=== PATIENT | female | born 1940 | race Caucasian/White ===

== ENCOUNTER 2017-01-30 22:22 | Observation (INO) | payer MEDICARE, OTHER ==
[~2017-01-30] VITALS: Ht 157.5 cm; Wt 88.0 kg
[~2017-01-30 22:22] MED LIST: ARNIGEL TOP; ASPI81TA82 PO; ATEN-100 PO; GLUCTAB PO; HYDR-3533 PO; LANTUS2P SC; LEVEMIR SQ; LISI-360 PO; NOVOLOGP2 SQ; ROSU10 PO; SYNT88TA PO; VICT18IN INJ; VITA200017 PO; Z.0.WHEELSTD
[2017-01-30] MEDS ORDERED: ASPI-110 PO (22:36)
[2017-01-30] MEDS ORDERED: METF-382 PO (22:36)
[2017-01-30] MEDS ORDERED: CHOL20005 PO (22:36)
[2017-01-30] MEDS ORDERED: ATEN25TA PO (22:36)
[2017-01-30] MEDS ORDERED: NOVOLOGP2 SQ (22:36)
[2017-01-30] MEDS ORDERED: SYNT88TA PO (22:36)
[2017-01-30] MEDS ORDERED: [UNRECOGNIZED DRUG - OTHER] (22:36)
[2017-01-30] MEDS ORDERED: ROSU5 PO (22:36)
[2017-01-30] MEDS ORDERED: LISI10TA3 PO (22:36)
[2017-01-30 22:37] VITALS: BP 117/68; PULSE 66; RESP 18; TEMP 98.7; O2SAT 96
[2017-01-30] MEDS ORDERED: SODIUM CHLOR 0.9% 1000 ML INJ 1,000 ML IV ONE (22:38)
--- NOTE | 2017-01-30 22:47 | PD ---
HPI Chief Complaint: Seizure Time Seen by Provider: 22:40 Travel History International Travel<30 days: No Contact w/Intl Traveler<30days: No Traveled to known affect area: No History of Present Illness HPI 76-year-old female presents the emergency department via EMS status post unresponsive episode in her home. Patient is a type II diabetic on insulin , who states she was resting watching television when she fell asleep and woke up with a cramp in her right foot and leg. States she got up several times to walk it off, and then fell back to sleep on the couch. Patient states her son reports an episode of unresponsiveness. Patient when she "came to" was diaphoretic and had a small amount of urinary incontinence. Patient has no history of seizures in the past. Patient got up and changed her pants and underwear prior to the arrival of EMS. Blood sugar checked by EMS was 120. Patient states no pain, headache, nausea, vomiting, abdominal pain, or other acute symptoms currently. Patient does have a history of dehydration in the distant past. She is allergic to sulfa. PFSH Past Medical History Hx Anticoagulant Therapy: Yes Arthritis: No Asthma: No Autoimmune Disease: No Anxiety: No Depression: No Heart Rhythm Problems: No Cancer: No Cardiovascular Problems: Yes High Cholesterol: Yes ( PT TAKES CRESTOR) Chemotherapy: No Chest Pain: No Congestive Heart Failure: No COPD: No Cerebrovascular Accident: No Diabetes: Yes Endocrine: Yes GERD: No Genitourinary: No Hiatal Hernia: No Hypertension: Yes Immune Disorder: No Kidney Stones: No Musculoskeletal: No Neurologic: No Psychiatric: No Reproductive: No Respiratory: No Migraines: No Radiation Therapy: No Renal Failure: No Seizures: No Sickle Cell Disease: No Sleep Apnea: No Thyroid Disease: Yes Ulcer: No ?: Not Past Surgical History Abdominal Surgery: No AICD: No Arteriovenous Shunt: No Cardiac Surgery: No Ear Surgery: No Endocrine Surgery: No Eye Surgery: No Genitourinary Surgery: No Gynecologic Surgery: Yes (HYSTERECTOMY) Hysterectomy: Yes Insulin Pump: No Joint Replacement: No Oral Surgery: No Pacemaker: No Thoracic Surgery: No Social History Alcohol Use: No Tobacco Use: No Substance Use: No Allergies-Medications (Allergen,Severity, Reaction): Coded Allergies: Sulfa (Unverified Allergy, Unknown, 01/30/17) Reported Meds & Prescriptions Reported Meds & Active Scripts Active Reported Synthroid (Levothyroxine Sodium) 88 Mcg Tab 88 Mcg PO DAILY Crestor (Rosuvastatin Calcium) 5 Mg Tab 5 Mg PO DAILY Metformin ER (Metformin HCl) 1,000 Mg Momo 1,000 Mg PO BID With evening meal Lisinopril 10 Mg Tab 10 Mg PO DAILY Novolog Inj (Insulin Aspart) 1,000 Unit/10 Ml Vial 0 SQ DIRECTED Sliding Scale as directed. D3 Super Strength (Cholecalciferol) 2,000 Unit Cap 2,000 Units PO DAILY Atenolol 25 Mg Tab 25 Mg PO DAILY Aspirin 81 (Aspirin) 81 Mg Tabdr 81 Mg PO DAILY [trejenta] Review of Systems Except as stated in HPI: all other systems reviewed are Neg General / Constitutional: No: Fever Eyes: No: Visual changes HENT: No: Headaches Cardiovascular: No: Chest Pain or Discomfort Respiratory: No: Shortness of Breath Gastrointestinal: No: Abdominal Pain Genitourinary: No: Dysuria Musculoskeletal: No: Pain Skin: No Rash Neurologic: No: Weakness Psychiatric: No: Depression Endocrine: No: Polydipsia Hematologic/Lymphatic: No: Easy Bruising Physical Exam Narrative GENERAL: Patient appears in no acute distress. She is alert and oriented 3. She does not appear postictal. SKIN: Warm . Normal color. Normal turgor. No diaphoresis currently. HEAD: Atraumatic. Normocephalic. EYES: Pupils equal and round. No scleral icterus. No injection or drainage. ENT: No nasal bleeding or discharge. Mucous membranes pink and moist. Pharynx is normal. Airway is patent. NECK: Trachea midline. Supple and nontender. CARDIOVASCULAR: Regular rate and rhythm. No murmurs gallops or rubs. RESPIRATORY: No accessory muscle use. Clear to auscultation. Breath sounds equal bilaterally. GASTROINTESTINAL: Abdomen soft, non-tender, nondistended. Hepatic and splenic margins not palpable. MUSCULOSKELETAL: Extremities without clubbing, cyanosis, or edema. No obvious deformities. NEUROLOGICAL: Awake and alert. No obvious cranial nerve deficits. Motor grossly within normal limits. Five out of 5 muscle strength in the arms and legs. Normal speech. PSYCHIATRIC: Appropriate mood and affect; insight and judgment normal. Data Data Last Documented VS Vital Signs Date Time Temp Pulse Resp B/P Pulse Ox O2 Delivery O2 Flow Rate FiO2 01/30/17 22:37 98.7 66 18 117/68 96 Orders Electrocardiogram (01/30/17 22:38) Complete Blood Count With Diff (01/30/17 22:38) Comprehensive Metabolic Panel (01/30/17 22:38) Magnesium (Mg) (01/30/17 22:38) Ckmb (Isoenzyme) Profile (01/30/17 22:38) Troponin I (01/30/17 22:38) Act Partial Throm Time (Ptt) (01/30/17 22:38) Prothrombin Time / Inr (Pt) (01/30/17 22:38) Urinalysis - C+S If Indicated (01/30/17 22:38) Chest, Single Ap (01/30/17 22:38) Ecg Monitoring (01/30/17 22:38) Iv Access Insert/Monitor (01/30/17:38) Oximetry (01/30/17 22:38) Sodium Chloride 0.9% Flush (Ns Flush) (01/30/17 22:45) Sodium Chlor 0.9% 1000 Ml Inj (Ns 1000 M (01/30/17 22:38) Orthostatic Vital Signs (01/30/17 22:38) MDM Medical Decision Making Medical Screen Exam Complete: Yes Emergency Medical Condition: Yes Differential Diagnosis Syncope. Dehydration. Electrolyte imbalance. Possible seizure disorder. Narrative Course Patient is medically stable at time of exam. Labs ordered including CBC, CMP, urinalysis, cardiac panel. EKG and chest x-ray are ordered. IV access is obtained patient is given 1000 normal saline bolus IV. CT of the head is ordered. After discussion with Dr. Santos. 2300 hrs. patient care is assumed by . Final disposition will be made by him. Condition: Stable Titus Lynne Jan 30, 2017 22:47
[2017-01-30 23:01] VITALS: RESP 18; O2SAT 96
[2017-01-30] MEDS: SODIUM CHLORIDE 0.9% FLUSH 10 ML FLUSH IVF PRN (23:01)
[2017-01-30 23:09] VITALS: BP_SYST 116; BP_SYST 123; BP_SYST 124; BP_DIAS 67; BP_DIAS 70; BP_DIAS 73; RESP 18
--- NOTE | 2017-01-30 23:15 | RADRPT ---
EXAM DATE/TIME: 01/30/2017 22:38 [facility] COMPARISON: CHEST SINGLE AP, February 16, 2015, 2:34. INDICATIONS : Syncope. MEDICAL HISTORY : None. SURGICAL HISTORY : None. ENCOUNTER: Initial ACUITY: 1 day PAIN SCORE: 0/10 LOCATION: Bilateral chest FINDINGS: A single view of the chest demonstrates the lungs to be symmetrically aerated without evidence of mas s, infiltrate or effusion. The cardiomediastinal contours are unremarkable. Osseous structures are intact. CONCLUSION: 1. No acute cardiopulmonary disease. Kirt Ayala MD on January 30, 2017 at 23:13 Board Certified Radiologist. This report was verified electronically.
[2017-01-30 23:28] LABS: AUTOMATED NEUTROPHIL # 5.1 TH/MM3 (1.8-7.7); BASOPHIL # 0.1 TH/MM3 (0-0.2); BASOPHIL % 0.6 % (0.0-2.0); EOSINOPHIL # 0.2 TH/MM3 (0-0.4); EOSINOPHIL % 1.8 % (0.0-4.0); HEMATOCRIT 34.3 % (35.0-46.0); HEMO FLAGS DIFF FINAL; LYMPH % 41.8 % (9.0-44.0); LYMPHOCYTE # 4.4 TH/MM3 (1.0-4.8); MEAN CELL VOLUME 83.1 FL (80.0-100.0); MEAN CORPUSCULAR HGB CONC 32.5 % (32.0-36.0); MONO % 7.4 % (0.0-8.0); NEUT % 48.4 % (16.0-70.0); PLATELET COUNT 285 TH/MM3 (150-450); RED BLOOD COUNT 4.13 MIL/MM3 (4.00-5.30); WHITE BLOOD COUNT 10.5 TH/MM3 (4.0-11.0)
--- NOTE | 2017-01-30 23:42 | RADRPT ---
EXAM DATE/TIME: 01/30/2017 23:23 [facility] COMPARISON: CT BRAIN W/O CONTRAST, February 11, 2015, 22:52. INDICATIONS : Syncope. RADIATION DOSE: 56.35 CTDIvol (mGy) MEDICAL HISTORY : Cardiovascular disease. Hypertension. Diabetes mellitus type 2. SURGICAL HISTORY : Hysterectomy. ENCOUNTER: Initial ACUITY: 1 day PAIN SCALE: 0/10 LOCATION: cranial TECHNIQUE: Multiple contiguous axial images were obtained of the head. Using automated exposure control and adj ustment of the mA and/or kV according to patient size, radiation dose was kept as low as reasonably a chievable to obtain optimal diagnostic quality images. FINDINGS: Noncontrast axial head CT demonstrates the ventricles to be normal in size and configuration with a n ormal sulcal pattern. No acute intracranial hemorrhage, acute cortical infarction, mass or midline sh ift is seen. Posterior fossa structures are unremarkable. Bone windows are unremarkable. There is benign-appearing mucosal disease in the right maxillary sinus . CONCLUSION: 1. No evidence of acute intracranial pathology. No masses are identified. Kirt Ayala MD on January 30, 2017 at 23:40 Board Certified Radiologist. This report was verified electronically.
[2017-01-30 23:55] LABS: ALKALINE PHOSPHATASE 101 U/L (45-117); ALT (GPT) 18 U/L (10-53); ANION GAP 10 MEQ/L (5-15); AST (GOT) 13 U/L (15-37); BICARBONATE 23.1 MEQ/L (21.0-32.0); BLOOD UREA NITROGEN 25 MG/DL (7-18); CHLORIDE 106 MEQ/L (98-107); CREATINE KINASE 144 U/L (26-192); GLOMERULAR FILTRATION RATE 37 ML/MIN (>89); MAGNESIUM 1.9 MG/DL (1.5-2.5); POTASSIUM 3.7 MEQ/L (3.5-5.1); SODIUM (NA) 139 MEQ/L (136-145); TOTAL BILIRUBIN ADULT 0.3 MG/DL (0.2-1.0)
[2017-01-31] VITALS (10 sets, daily range): BP systolic 122–160; BP diastolic 63–76; PULSE 62–80; RESP 18–20; TEMP 97.7–98.8; O2SAT 95–99
[2017-01-31 00:11] LABS: CKMB 1.5 NG/ML (0.5-3.6)
[2017-01-31] MEDS: SODIUM CHLORIDE 0.9% FLUSH 10 ML FLUSH IVF PRN (00:12)
[2017-01-31] MEDS ORDERED: DEXTROSE 50% IN WATER 50 ML VIAL(D50) IV PUSH ONE (00:15)
--- NOTE | 2017-01-31 00:57 | PD ---
Data Data Last Documented VS Vital Signs Date Time Temp Pulse Resp B/P Pulse Ox O2 Delivery O2 Flow Rate FiO2 01/31/17 00:51 72 18 131/72 96 Room Air 01/30/17 22:37 98.7 Orders Electrocardiogram (01/30/17 22:38) Complete Blood Count With Diff (01/30/17 22:38) Comprehensive Metabolic Panel (01/30/17 22:38) Magnesium (Mg) (01/30/17 22:38) Ckmb (Isoenzyme) Profile (01/30/17 22:38) Troponin I (01/30/17 22:38) Act Partial Throm Time (Ptt) (01/30/17 22:38) Prothrombin Time / Inr (Pt) (01/30/17 22:38) Urinalysis - C+S If Indicated (01/30/17 22:38) Chest, Single Ap (01/30/17 22:38) Ecg Monitoring (01/30/17 22:38) Iv Access Insert/Monitor (01/30/17 22:38) Oximetry (01/30/17 22:38) Sodium Chloride 0.9% Flush (Ns Flush) (01/30/17 22:45) Sodium Chlor 0.9% 1000 Ml Inj (Ns 1000 M (01/30/17 22:38) Orthostatic Vital Signs (01/30/17 22:38) Ct Brain W/O Iv Contrast(Rout) (01/30/17 22:47) CKMB (01/30/17 22:50) CKMB% (01/30/17 22:50) Dextrose 50% In Devan (Vial) Inj (D50w (Vi (01/31/17 00:15) Diet As Tolerated (01/31/17 00:16) Labs Laboratory Tests Test 01/30/17 22:50 White Blood Count 10.5 TH/MM3 Red Blood Count 4.13 MIL/MM3 Hemoglobin 11.1 GM/DL Hematocrit 34.3 % Mean Corpuscular Volume 83.1 FL Mean Corpuscular Hemoglobin 27.0 PG Mean Corpuscular Hemoglobin 32.5 % Concent Red Cell Distribution Width 15.0 % Platelet Count 285 TH/MM3 Mean Platelet Volume 8.3 FL Neutrophils (%) (Auto) 48.4 % Lymphocytes (%) (Auto) 41.8 % Monocytes (%) (Auto) 7.4 % Eosinophils (%) (Auto) 1.8 % Basophils (%) (Auto) 0.6 % Neutrophils # (Auto) 5.1 TH/MM3 Lymphocytes # (Auto) 4.4 TH/MM3 Monocytes # (Auto) 0.8 TH/MM3 Eosinophils # (Auto) 0.2 TH/MM3 Basophils # (Auto) 0.1 TH/MM3 CBC Comment DIFF FINAL Differential Comment Sodium Level 139 MEQ/L Potassium Level 3.7 MEQ/L Chloride Level 106 MEQ/L Carbon Dioxide Level 23.1 MEQ/L Anion Gap 10 MEQ/L Blood Urea Nitrogen 25 MG/DL Creatinine 1.38 MG/DL Estimat Glomerular Filtration 37 ML/MIN Rate Random Glucose 48 MG/DL Calcium Level 9.5 MG/DL Magnesium Level 1.9 MG/DL Total Bilirubin 0.3 MG/DL Aspartate Amino Transf 13 U/L (AST/SGOT) Alanine Aminotransferase 18 U/L (ALT/SGPT) Alkaline Phosphatase 101 U/L Total Creatine Kinase 144 U/L Creatine Kinase MB 1.5 NG/ML Troponin I LESS THAN 0.02 NG/ML Total Protein 8.1 GM/DL Albumin 3.8 GM/DL MDM Supervised Visit with JONATHAN: Yes Narrative Course I, Dr. Santos, have reviewed the advance practice practitioner's documentation and am in agreement, met with the patient face to face, made the diagnosis, and the medical decision making was done by me. See her note for further details. Briefly this is a 76 female who has history of diabetes on insulin who is here for evaluation of unresponsiveness and possible seizure. This episode was witnessed by her son. He states that the patient became rigid, high generally shaking, and was groaning. This lasted for about a minute. She had a small amount of urinary incontinence. No history of seizures. EMS noted her blood sugar to be 120. Upon arrival to the emergency department the patient states that she feels well. No physical complaints. No headache. No chest pain or dyspnea. No fevers or recent illness. Physical exam shows an awake and alert/ well-developed well-nourished patient with no focal findings. Vital signs are within normal limits. CBC shows slight anemia with hemoglobin of 11.1, otherwise unremarkable. CMP is remarkable for BUN 25, creatinine 1.3, GFR 37, random glucose 48. Cardiac enzymes are negative. Fingerstick here in the emergency department after chemistry resulted shows a BGL of 42. Patient was given an amp of D50 and given crackers to eat. Repeat sugar is 93. Chest x-ray shows no acute disease. CT head shows no evidence of acute intracranial pathology. Patient's symptoms could be secondary to hypoglycemia, however when EMS arrived to the home the patient's blood glucose was 120. Patient be admitted for overnight observation for syncope versus seizure versus hypoglycemia workup. Case discussed with [facility] hospitalist TIERA Booth. The patient will be admitted to their service under Dr. Grigsby. Diagnosis Primary Impression: Hypoglycemia Additional Impression: Syncope Qualified Code: R55 - Syncope, unspecified syncope type Admitting Information Admitting Physician Requests: Observation Condition: Stable Noe Santos MD Jan 31, 2017 00:57
[2017-01-31] MEDS ORDERED: NALOXONE HCL 0.4 MG/ML AMP IV PRN (01:45)
[2017-01-31] MEDS ORDERED: ACETAMINOPHEN 325 MG TAB PO PRN (01:45)
[2017-01-31] MEDS ORDERED: ONDANSETRON HCL 4 MG/2 ML VIAL IVP PRN (01:45)
[2017-01-31] MEDS ORDERED: SODIUM CHLORIDE 0.9% FLUSH 10 ML FLUSH IV FLUSH PRN (01:45)
[2017-01-31] MEDS: DEXT 5%-NACL 0.9% 1000 ML INJ 1,000 ML IV SCH (02:13)
[2017-01-31 03:43] LABS: APTT (PATIENT) 20.9 SEC (24.3-30.1); PROTHROMBIN TIME - PATIENT 10.7 SEC (9.8-11.6)
[2017-01-31 04:33] LABS: BACTERIA, URINE RARE /hpf; BLOOD, URINE NEG (NEG); COMMENT (UR) CULT NOT INDICATED; CULTURE IF INDICATED CULT NOT INDICATED; GLUCOSE,URINE TRACE mg/dL (NEG); HYALINE CAST, URINE 5 /lpf (RARE); KETONE, URINE NEG (NEG); MUCUS URINE FEW /lpf (OCC); NITRITE,URINE NEG (NEG); SQUAMOUS EPITHELIAL CELL URINE 1 /hpf (0-5); URINE COLOR LIGHT-YELLOW (YELLW/STRAW)
[2017-01-31] MEDS: LEVOTHYROXINE SODIUM 88 MCG TAB PO SCH (05:31)
[2017-01-31] MEDS ORDERED: GLUCAGON 1 MG/ML VIAL IM ONE (08:30)
[2017-01-31] MEDS: SODIUM CHLORIDE 0.9% FLUSH 10 ML FLUSH IV FLUSH SCH ×2 (08:33→20:42)
[2017-01-31] MEDS: ATORVASTATIN 10 MG TAB PO SCH (08:33)
[2017-01-31] MEDS: CHOLECALCIFEROL (VIT D3) 1000 UNIT TAB PO SCH (08:33)
[2017-01-31] MEDS: LISINOPRIL 10 MG TAB PO SCH (08:33)
[2017-01-31] MEDS: ASPIRIN EC 81 MG TABEC PO SCH (08:33)
[2017-01-31] MEDS: ATENOLOL 25 MG TAB PO SCH (08:33)
--- NOTE | 2017-01-31 12:22 | PD.CONS ---
History of Present Illness Service Neurology Consult Requested By [facility] Reason for Consult sz Primary Care Physician Luis Yuen MD History of Present Illness 76-year-old female presents the emergency department via EMS status post unresponsive episode in her home. Patient is a type II diabetic on insulin , who states she was resting watching television when she fell asleep and woke up with a cramp in her right foot and leg. States she got up several times to walk it off, and then fell back to sleep on the couch. Patient states her son reports an episode of unresponsiveness. he noticed her to become stiff and tremor. confusion after. this has occurred to her once before 2 years ago. glucose was elevated at that time. Blood sugar checked by EMS was 120. Patient states no pain, headache, nausea, vomiting, abdominal pain, or other acute symptoms currently. glucose in er 48. ct brain nml. mild azotemia. no hx of concussion/stroke. no family hx of sz. PFSH Past Medical History Hx Anticoagulant Therapy: Yes Arthritis: No Asthma: No Autoimmune Disease: No Anxiety: No Depression: No Heart Rhythm Problems: No Cancer: No Cardiovascular Problems: Yes High Cholesterol: Yes ( PT TAKES CRESTOR) Chemotherapy: No Chest Pain: No Congestive Heart Failure: No COPD: No Cerebrovascular Accident: No Diabetes: Yes Endocrine: Yes GERD: No Genitourinary: No Hiatal Hernia: No Hypertension: Yes Immune Disorder: No Kidney Stones: No Musculoskeletal: No Neurologic: No Psychiatric: No Reproductive: No Respiratory: No Migraines: No Radiation Therapy: No Renal Failure: No Seizures: No Sickle Cell Disease: No Sleep Apnea: No Thyroid Disease: Yes Ulcer: No ?: Not Past Surgical History Abdominal Surgery: No AICD: No Arteriovenous Shunt: No Cardiac Surgery: No Ear Surgery: No Endocrine Surgery: No Eye Surgery: No Genitourinary Surgery: No Gynecologic Surgery: Yes (HYSTERECTOMY) Hysterectomy: Yes Insulin Pump: No Joint Replacement: No Oral Surgery: No Pacemaker: No Thoracic Surgery: No Social History Alcohol Use: No Tobacco Use: No Substance Use: No Allergies-Medications (Allergen,Severity, Reaction): Coded Allergies: Sulfa (Unverified Allergy, Unknown, 01/30/17) Reported Meds & Prescriptions Review of Systems Except as stated in HPI: all other systems reviewed are Neg Review of Systems All other ROS: ROS reviewed as documented in chart Past Family Social History Allergies: Coded Allergies: Sulfa (Unverified Allergy, Unknown, 01/30/17) Active Ordered Medications Current Medications Medications (Trade) Dose Ordered Sig/Hansa Route Start Time Stop Time Status Last Admin (NS Flush) 2 ml UNSCH PRN IVF 01/30/17 22:45 01/31/17 00:12 (NS Flush) 2 ml UNSCH PRN IV FLUSH 01/31/17 01:45 (NS Flush) 2 ml BID IV FLUSH 01/31/17 09:00 (Tylenol) 650 mg Q4H PRN PO 01/31/17 01:45 (Zofran Inj) 4 mg Q6H PRN IVP 01/31/17 01:45 Naloxone HCl 0.4 mg 0.4 mg UNSCH PRN IV 01/31/17 01:45 (D5W-NS 1000 ml Inj) 1,000 ml @ 50 mls/hr Q20H IV 01/31/17 01:42 01/31/17 02:13 (Tenormin) 25 mg DAILY PO 01/31/17 09:00 01/31/17 08:33 (Vitamin D3) 2,000 units DAILY PO 01/31/17 09:00 01/31/17 08:33 (Synthroid) 88 mcg DAILY@06 PO 01/31/17 06:00 01/31/17 05:31 (Prinivil) 10 mg DAILY PO 01/31/17 09:00 01/31/17 08:33 (Ecotrin Ec) 81 mg DAILY PO 01/31/17 09:00 01/31/17 08:33 (Lipitor) 10 mg DAILY PO 01/31/17 09:00 01/31/17 08:33 Exam I&O / VS 01/30/17 01/30/17 01/31/17 15:00 23:00 07:00 Intake Total 240 ml Balance 240 ml Intake Oral 240 ml Vital Signs Date Time Temp Pulse Resp B/P Pulse Ox O2 Delivery O2 Flow Rate FiO2 01/31/17 11:42 70 18 160/72 96 01/31/17 11:20 72 01/31/17 07:58 98.8 80 18 133/68 97 01/31/17 06:49 75 01/31/17 05:50 97.7 77 20 141/76 99 01/31/17 04:00 76 18 122/64 95 Room Air 01/31/17 00:51 72 18 131/72 96 Room Air 01/30/17 23:09 69 18 123/73 80 18 116/67 78 18 124/70 01/30/17 23:01 18 96 Room Air 01/30/17 22:37 98.7 66 18 117/68 96 General: Alert and Oriented, No acute distress Eye: EOMI Respiratory: Non-labored respirations Musculoskeletal: ROM Neurologic: Alert, Oriented, Normal sensory, Normal motor, No focal defects, CN II-XII intact Psychiatric: Cooperative, Appropriate mood & affect, Normal judgement, Non- suicidal Review/Management Diagnosis/Plan: (1) Seizure Plan: 2nd episode unprovoked recs eeg will also obtain neuroimaging for late onset sz tele watch glucose pt declines sz med no driving/climbing heights/operating dangerous machinery (2) Syncope (3) Hypoglycemia Plan: ? does not appear to be cause as glucose was nml immediately after event Problem Qualifiers (1) Syncope: Qualified Code: R55 - Syncope, unspecified syncope type Azar Liu MD Jan 31, 2017 12:22
--- NOTE | 2017-01-31 12:40 | HHI.HP ---
HPI Service [facility] Primary Care Physician Luis Yuen MD Admission Diagnosis hypoglycemia, syncope versus seizure Diagnoses: Travel History International Travel<30 Days: No Contact w/Intl Traveler <30 Da: No Traveled to Known Affected Are: No History of Present Illness This is a 76-year-old female with a history of diabetes. Patient had an episode of becoming rigid, shaking all over and groaning. This was witnessed by her son who was at her bedside while examined earlier today by the undersigned in room F 62 at the emergency department. She had urinary incontinence. She did not bite her tongue. 911 were called. Her fingerstick sugar was 120 according to EMS. She was alert and verbal and oriented on arrival to the emergency department however her blood glucose was 42 and her serum glucose was 48. On further questioning the patient she did not think that the low sugar was the reason for her apparent seizure. She had a similar seizure episode 2 years ago that was apparently associated with some urinary infection but no problem with her blood sugar. The patient was seen in conjunction with neurologist Dr. Liu . Based on the above fact that the patient had what appears to be 2 episodes of seizure , therefore the patient was offered to be started on Keppra which she declined. She drives to work and she was informed that she should not be driving for the next 6 months. The patient gives herself NovoLog insulin based on a sliding scale 3 times a day before meals. She said that her blood sugar was actually elevated yesterday. She recently was started on weekly injections for her diabetes however she does not know the name of those injections. She also has been not taking her B-12 injections recently. She denies complaints otherwise. Review of Systems Other As above, 10 systems are reviewed and otherwise negative Past Family Social History Past Medical History Urinary infection Hypothyroid Hyperlipidemia Hypertension Arthritis Diabetes Past Surgical History Hysterectomy Allergies: Coded Allergies: Sulfa (Unverified Allergy, Unknown, 01/30/17) Family History Reviewed but not contributory Social History Former smoker, quit in 1984, no excessive alcohol, no illicit drug use Physical Exam Vital Signs Vital Signs Date Time Temp Pulse Resp B/P Pulse Ox O2 Delivery O2 Flow Rate FiO2 01/31/17 11:42 70 18 160/72 96 01/31/17 11:20 72 01/31/17 07:58 98.8 80 18 133/68 97 01/31/17 06:49 75 01/31/17 05:50 97.7 77 20 141/76 99 01/31/17 04:00 76 18 122/64 95 Room Air 01/31/17 00:51 72 18 131/72 96 Room Air 01/30/17 23:09 69 18 123/73 80 18 116/67 78 18 124/70 01/30/17 23:01 18 96 Room Air 01/30/17 22:37 98.7 66 18 117/68 96 Physical Exam GENERAL: This is a pleasant, overweight, well-developed patient, in no apparent distress. SKIN: No rashes, ecchymoses or lesions. Cool and dry. HEAD: Atraumatic. Normocephalic. No temporal or scalp tenderness. EYES: Pupils equal round and reactive. Extraocular motions intact. No scleral icterus. No injection or drainage. ENT: Nose without bleeding, purulent drainage or septal hematoma. Throat without erythema, tonsillar hypertrophy or exudate. Uvula midline. Airway patent. NECK: Trachea midline. No JVD or lymphadenopathy. Supple, nontender, no meningeal signs. CARDIOVASCULAR: Regular rate and rhythm without murmurs, gallops, or rubs. RESPIRATORY: Clear to auscultation. Breath sounds equal bilaterally. No wheezes , rales, or rhonchi. GASTROINTESTINAL: Abdomen soft, non-tender, nondistended. No hepato-splenomegaly , or palpable masses. No guarding. MUSCULOSKELETAL: Extremities without clubbing, cyanosis, or edema. No joint tenderness, effusion, or edema noted. No calf tenderness. Negative Homans sign bilaterally. NEUROLOGICAL: Awake and alert. Cranial nerves II through XII intact. Motor and sensory grossly within normal limits. Five out of 5 muscle strength in all muscle groups. Normal speech. Laboratory Laboratory Tests Test 01/30/17 01/31/17 01/31/17 22:50 02:58 03:35 White Blood Count 10.5 Red Blood Count 4.13 Hemoglobin 11.1 Hematocrit 34.3 Mean Corpuscular Volume 83.1 Mean Corpuscular Hemoglobin 27.0 Mean Corpuscular Hemoglobin 32.5 Concent Red Cell Distribution Width 15.0 Platelet Count 285 Mean Platelet Volume 8.3 Neutrophils (%) (Auto) 48.4 Lymphocytes (%) (Auto) 41.8 Monocytes (%) (Auto) 7.4 Eosinophils (%) (Auto) 1.8 Basophils (%) (Auto) 0.6 Neutrophils # (Auto) 5.1 Lymphocytes # (Auto) 4.4 Monocytes # (Auto) 0.8 Eosinophils # (Auto) 0.2 Basophils # (Auto) 0.1 CBC Comment DIFF FINAL Differential Comment Sodium Level 139 Potassium Level 3.7 Chloride Level 106 Carbon Dioxide Level 23.1 Anion Gap 10 Blood Urea Nitrogen 25 Creatinine 1.38 Estimat Glomerular Filtration 37 Rate Random Glucose 48 Calcium Level 9.5 Magnesium Level 1.9 Total Bilirubin 0.3 Aspartate Amino Transf 13 (AST/SGOT) Alanine Aminotransferase 18 (ALT/SGPT) Alkaline Phosphatase 101 Total Creatine Kinase 144 Creatine Kinase MB 1.5 Troponin I LESS THAN 0.02 Total Protein 8.1 Albumin 3.8 Prothrombin Time 10.7 Prothromb Time International 1.0 Ratio Activated Partial 20.9 Thromboplast Time Urine Color LIGHT-YELLOW Urine Turbidity CLEAR Urine pH 5.0 Urine Specific Stanley 1.018 Urine Protein TRACE Urine Glucose (UA) TRACE Urine Ketones NEG Urine Occult Blood NEG Urine Nitrite NEG Urine Bilirubin NEG Urine Urobilinogen LESS THAN 2.0 Urine Leukocyte Esterase SMALL Urine RBC 2 Urine WBC 5 Urine Squamous Epithelial 1 Cells Urine Bacteria RARE Urine Hyaline Casts 5 Urine Mucus FEW Microscopic Urinalysis Comment CULT NOT INDICATED Result Diagram: 01/30/17224901/30/172249 Imaging Last Impressions Head Magnetic Resonance Angiography 01/31/17 0000 Signed Impressions: Service Date/Time: Tuesday, January 31, 2017 14:42 - CONCLUSION: Normal examination for a patient of this age. Randolph Lynn MD Brain MRI 01/31/17 0000 Signed Impressions: Service Date/Time: Tuesday, January 31, 2017 14:42 - CONCLUSION: 1. No acute findings. Mild chronic white matter ischemic changes. No recent infarct. Retention cyst right maxillary sinus. Randolph Lynn MD Head CT 01/30/172246 Signed Impressions: Service Date/Time: Monday, January 30, 2017 23:23 - CONCLUSION: 1. No evidence of acute intracranial pathology. No masses are identified. Kirt Ayala MD Chest X-Ray 01/30/172237 Signed Impressions: Service Date/Time: Monday, January 30, 2017 22:38 - CONCLUSION: 1. No acute cardiopulmonary disease. Kirt Ayala MD Assessment and Plan Assessment and Plan Assessment Recurrent seizures, this is her second episode Hypoglycemia Mild anemia Renal dysfunction, this appears to be new compared with her prior renal indices in 2015 Overweight Hypertriglyceridemia B 12 deficiency Management The patient was placed on observation She has already been seen by neurology MRI of the brain already done and unremarkable Replace B-12 Continue home medications Sliding scale of insulin Needs to lose weight Follow renal function Glucose done as needed for hypoglycemia She was offered to be started on Keppra which she declined She should not be driving for the next 6 months, at least EEG is ordered and report is pending Discussed with patient and her son 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
[2017-01-31] MEDS: INSULIN ASPART SUPPLEMENTAL SCALE SQ SCH ×3 (13:01→20:45)
[2017-01-31] MEDS ORDERED: EXEN1INJ SQ (13:41)
--- NOTE | 2017-01-31 14:12 | EKG ---
Date Performed: 01/30/2017 Time Performed: 23:14:48 PTAGE: 76 years EKG: Sinus arrhythmia Otherwise, within normal limits Since previous tracing, no significant liam nge noted NORMAL ECG PREVIOUS TRACING : 02/11/2015 17.12 DOCTOR: Glenn Nguyen Interpretating Date/Time 01/31/2017 14:11:52
--- NOTE | 2017-01-31 15:15 | RADRPT ---
EXAM DATE/TIME: 01/31/2017 14:42 [facility] COMPARISON: No previous studies available for comparison. INDICATIONS : Epilepsy. MEDICAL HISTORY : Diabetes mellitus type 2. Hypertension. SURGICAL HISTORY : Hysterectomy. ENCOUNTER: Initial ACUITY: 1 day PAIN SCORE: 0/10 LOCATION: cranial Please note a normal MRA of the brain does not entirely exclude the possibility of a small aneurysm, nor the possibility of distal intracranial vessel disease. TECHNIQUE: 3D time of flight MRA was performed. Source images, multiplanar STS MIP, and 3D volume MIP reconstru ctions were reviewed. FINDINGS: There is excellent visualization of the major intracranial arteries out to the second-order branch ve ssels. There is no evidence for aneurysm, vessel truncation or stenosis, and no evidence for vascula r malformation. CONCLUSION: Normal examination for a patient of this age. Randolph Lynn MD on January 31, 2017 at 15:10 Board Certified Radiologist. This report was verified electronically.
--- NOTE | 2017-01-31 15:23 | RADRPT ---
EXAM DATE/TIME: 01/31/2017 14:42 [facility] COMPARISON: No previous studies available for comparison. INDICATIONS : Epilepsy. MEDICAL HISTORY : Diabetes mellitus type 2. Hypertension. SURGICAL HISTORY : Hysterectomy. ENCOUNTER: Initial ACUITY: 1 day PAIN SCORE: 0/10 LOCATION: cranial TECHNIQUE: Multiplanar, multisequence MRI of the brain was performed without contrast. FINDINGS: CEREBRUM: The ventricles are normal for age. No evidence of midline shift, mass lesion, hemorrhage or acute in farction. No extraaxial fluid collections are seen. The pituitary gland and suprasellar cistern are normal in configuration. WHITE MATTER: Mild significant signal abnormalities are seen in the white matter. POSTERIOR FOSSA: The cerebellum and brainstem are intact. The 4th ventricle is midline. The cerebellopontine angle is unremarkable. The cerebellar tonsils are normal in position. DIFFUSION IMAGING: No focal areas of restricted diffusion are seen. No evidence of acute infarction. EXTRACRANIAL: The visualized portions of the orbits and paranasal sinuses are unremarkable except 2.6 cm retention cyst right maxillary sinus. CONCLUSION: 1. No acute findings. Mild chronic white matter ischemic changes. No recent infarct. Retention cyst r ight maxillary sinus. Randolph Lynn MD on January 31, 2017 at 15:15 Board Certified Radiologist. This report was verified electronically.
[2017-01-31 16:49] LABS: ANION GAP 8 MEQ/L (5-15); BICARBONATE 23.8 MEQ/L (21.0-32.0); BLOOD UREA NITROGEN 20 MG/DL (7-18); CHLORIDE 104 MEQ/L (98-107); GLOMERULAR FILTRATION RATE 45 ML/MIN (>89); HDL CHOLESTEROL 45.7 MG/DL (40.0-60.0); LDL CHOLESTEROL 60 MG/DL (0-99); POTASSIUM 4.3 MEQ/L (3.5-5.1); SODIUM (NA) 136 MEQ/L (136-145)
--- NOTE | 2017-01-31 22:00 | RADRPT ---
EXAM DATE/TIME: 01/31/2017 18:50 [facility] COMPARISON: No previous studies available for comparison. INDICATIONS : Syncope. MEDICAL HISTORY : Hypercholesterolemia. Hypertension. Hypothyroidism. Anticoagulant therapy. Arthritis. Diabetes. SURGICAL HISTORY : Hysterectomy. ENCOUNTER: Initial ACUITY: 1 day PAIN SCORE: 0/10 LOCATION: Bilateral neck PEAK SYSTOLIC VELOCITIES (cm/sec): ICA/CCA RATIO: Right: 0.6 Left: 1.1 ICA: Right: 79 Left: 71 CCA: Right: 136 Left: 65 ECA: Right: 79 Left: 81 VERTEBRAL: Right: 74 antegrade Left: 39 antegrade Elevated flow velocities and ICA/CCA ratios have been found to correlate with increased degrees of vessel stenosis, calculated as percentage of diameter relative to a normal segment of distal ICA/CCA FINDINGS: RIGHT CAROTID: No significant stenosis is visualized. The waveforms are within normal limits. LEFT CAROTID: No significant stenosis is visualized. The waveforms are within normal limits. VERTEBRAL ARTERIES: Antegrade flow is seen in both vertebral arteries. MISCELLANEOUS: None. CONCLUSION: Normal examination for a patient of this age. Randolph Lynn MD on January 31, 2017 at 21:58 Board Certified Radiologist. This report was verified electronically.
[2017-02-01] VITALS: BP 124/71; PULSE 61; RESP 20; TEMP 95.4; O2SAT 97
[2017-02-01] MEDS: DEXT 5%-NACL 0.9% 1000 ML INJ 1,000 ML IV SCH (00:15)
[2017-02-01 04:00] VITALS: BP 121/69; PULSE 89; RESP 18; TEMP 98; O2SAT 98
[2017-02-01 04:46] LABS: AUTOMATED NEUTROPHIL # 2.2 TH/MM3 (1.8-7.7); BASOPHIL % 0.5 % (0.0-2.0); EOSINOPHIL # 0.3 TH/MM3 (0-0.4); EOSINOPHIL % 4.6 % (0.0-4.0); HEMATOCRIT 31.6 % (35.0-46.0); HEMO FLAGS DIFF FINAL; LYMPH % 48.5 % (9.0-44.0); LYMPHOCYTE # 2.8 TH/MM3 (1.0-4.8); MEAN CELL VOLUME 82.8 FL (80.0-100.0); MEAN CORPUSCULAR HEMOGLOBIN 27.8 PG (27.0-34.0); MEAN CORPUSCULAR HGB CONC 33.5 % (32.0-36.0); MONO % 8.1 % (0.0-8.0); NEUT % 38.3 % (16.0-70.0); PLATELET COUNT 215 TH/MM3 (150-450); RED BLOOD COUNT 3.81 MIL/MM3 (4.00-5.30); RED CELL DISTRIBUTION WIDTH 15.1 % (11.6-17.2); WHITE BLOOD COUNT 5.7 TH/MM3 (4.0-11.0)
[2017-02-01 05:23] LABS: BICARBONATE 26.4 MEQ/L (21.0-32.0); POTASSIUM 3.9 MEQ/L (3.5-5.1)
[2017-02-01] MEDS: LEVOTHYROXINE SODIUM 88 MCG TAB PO SCH (05:48)
[2017-02-01] MEDS: INSULIN ASPART SUPPLEMENTAL SCALE SQ SCH ×2 (05:48→12:49)
[2017-02-01 07:20] VITALS: BP 117/67; PULSE 66; RESP 20; TEMP 97.9; O2SAT 96
[2017-02-01 08:00] VITALS: PULSE 62
--- NOTE | 2017-02-01 08:10 | HHI.PR ---
Review/Management Diagnosis/Plan: (1) Seizure Plan: 2nd episode unprovoked recs eeg-pending mri brain-no acute lesion carotids-nml tele watch glucose pt declines sz med no driving/climbing heights/operating dangerous machinery (2) Syncope (3) Hypoglycemia Plan: ? does not appear to be cause as glucose was nml immediately after event Subjective Subjective Comments No acute events reported No headache No chest pain No dyspnea Active Medications Current Medications Medications (Trade) Dose Ordered Sig/Hansa Route Start Time Stop Time Status Last Admin (NS Flush) 2 ml UNSCH PRN IVF 01/30/17 22:45 01/31/17 00:12 (NS Flush) 2 ml UNSCH PRN IV FLUSH 01/31/17 01:45 (NS Flush) 2 ml BID IV FLUSH 01/31/17 09:00 01/31/17 20:42 (Tylenol) 650 mg Q4H PRN PO 01/31/17 01:45 (Zofran Inj) 4 mg Q6H PRN IVP 01/31/17 01:45 Naloxone HCl 0.4 mg 0.4 mg UNSCH PRN IV 01/31/17 01:45 (D5W-NS 1000 ml Inj) 1,000 ml @ 50 mls/hr Q20H IV 01/31/17 01:42 02/01/17 00:15 (Tenormin) 25 mg DAILY PO 01/31/17 09:00 01/31/17 08:33 (Vitamin D3) 2,000 units DAILY PO 01/31/17 09:00 01/31/17 08:33 (Synthroid) 88 mcg DAILY@06 PO 01/31/17 06:00 02/01/17 05:48 (Prinivil) 10 mg DAILY PO 01/31/17 09:00 01/31/17 08:33 (Ecotrin Ec) 81 mg DAILY PO 01/31/17 09:00 01/31/17 08:33 (Lipitor) 10 mg DAILY PO 01/31/17 09:00 01/31/17 08:33 (Vitamin B12 Inj) 1,000 mcg DAILY IM 02/01/17 09:00 Allergies Allergies Coded Allergies Sulfa (Unverified Allergy, Unknown, 01/30/17) Review of Systems All other ROS: ROS reviewed as documented in chart Exam I&O / VS Vital Signs Date Time Temp Pulse Resp B/P Pulse Ox O2 Delivery O2 Flow Rate FiO2 02/01/17 07:20 97.9 66 20 117/67 96 02/01/17 04:00 98.0 89 18 121/69 98 02/01/17 00:00 95.4 61 20 124/71 97 01/31/17 20:00 66 01/31/17 19:41 98.1 62 20 130/63 95 01/31/17 16:12 97.8 68 18 127/72 95 01/31/17 11:42 70 18 160/72 96 01/31/17 11:20 72 General: Alert and Oriented, No acute distress Eye: EOMI Respiratory: Non-labored respirations Musculoskeletal: ROM Neurologic: Alert, Oriented, Normal sensory, Normal motor, No focal defects, CN II-XII intact Psychiatric: Cooperative, Appropriate mood & affect, Normal judgement, Non- suicidal Objective Micro and Labs Laboratory Tests Test 01/31/17 02/01/17 15:24 03:30 Erythrocyte Sedimentation Rate 60 Sodium Level 136 142 Potassium Level 4.3 3.9 Chloride Level 104 109 Carbon Dioxide Level 23.8 26.4 Anion Gap 8 7 Blood Urea Nitrogen 20 19 Creatinine 1.16 0.97 Estimat Glomerular Filtration 45 56 Rate Random Glucose 226 45 Calcium Level 8.7 9.1 Triglycerides Level 216 Cholesterol Level 149 LDL Cholesterol 60 HDL Cholesterol 45.7 Cholesterol/HDL Ratio 3.26 Vitamin B12 Level 116 Thyroid Stimulating Hormone 0.820 3rd Gen White Blood Count 5.7 Red Blood Count 3.81 Hemoglobin 10.6 Hematocrit 31.6 Mean Corpuscular Volume 82.8 Mean Corpuscular Hemoglobin 27.8 Mean Corpuscular Hemoglobin 33.5 Concent Red Cell Distribution Width 15.1 Platelet Count 215 Mean Platelet Volume 8.4 Neutrophils (%) (Auto) 38.3 Lymphocytes (%) (Auto) 48.5 Monocytes (%) (Auto) 8.1 Eosinophils (%) (Auto) 4.6 Basophils (%) (Auto) 0.5 Neutrophils # (Auto) 2.2 Lymphocytes # (Auto) 2.8 Monocytes # (Auto) 0.5 Eosinophils # (Auto) 0.3 Basophils # (Auto) 0.0 CBC Comment DIFF FINAL Differential Comment Problem Qualifiers (1) Syncope: Qualified Code: R55 - Syncope, unspecified syncope type Azar Liu MD Feb 01, 2017 08:10
--- NOTE | 2017-02-01 08:19 | HHI.PR ---
Subjective Subjective Remarks blood glucose 45 overnight, asymptomatic, rechecked was 56, now up to 200 dextrose off for a period of time due to IV infiltrated no seizure doesn't want to take seizure meds "I don't want to take more medications, I already take too much" wants to think about it no cp no sob no fever wants to go home Review of Systems Constitutional Constitutional Remarks 12 point ROS completed, negative except as noted above Vitals/Results Vital Signs Vital Signs Date Time Temp Pulse Resp B/P Pulse Ox O2 Delivery O2 Flow Rate FiO2 02/01/17 07:20 97.9 66 20 117/67 96 02/01/17 04:00 98.0 89 18 121/69 98 02/01/17 00:00 95.4 61 20 124/71 97 01/31/17 20:00 66 01/31/17 19:41 98.1 62 20 130/63 95 01/31/17 16:12 97.8 68 18 127/72 95 01/31/17 11:42 70 18 160/72 96 01/31/17 11:20 72 CBC/BMP: 02/01/17 0330 02/01/17 0330 Lab Results Laboratory Tests Test 01/31/17 02/01/17 15:24 03:30 Erythrocyte Sedimentation Rate 60 mm/hr Sodium Level 136 MEQ/L 142 MEQ/L Potassium Level 4.3 MEQ/L 3.9 MEQ/L Chloride Level 104 MEQ/L 109 MEQ/L Carbon Dioxide Level 23.8 MEQ/L 26.4 MEQ/L Anion Gap 8 MEQ/L 7 MEQ/L Blood Urea Nitrogen 20 MG/DL 19 MG/DL Creatinine 1.16 MG/DL 0.97 MG/DL Estimat Glomerular Filtration 45 ML/MIN 56 ML/MIN Rate Random Glucose 226 MG/DL 45 MG/DL Calcium Level 8.7 MG/DL 9.1 MG/DL Triglycerides Level 216 MG/DL Cholesterol Level 149 MG/DL LDL Cholesterol 60 MG/DL HDL Cholesterol 45.7 MG/DL Cholesterol/HDL Ratio 3.26 RATIO Vitamin B12 Level 116 PG/ML Thyroid Stimulating Hormone 0.820 uIU/ML 3rd Gen White Blood Count 5.7 TH/MM3 Red Blood Count 3.81 MIL/MM3 Hemoglobin 10.6 GM/DL Hematocrit 31.6 % Mean Corpuscular Volume 82.8 FL Mean Corpuscular Hemoglobin 27.8 PG Mean Corpuscular Hemoglobin 33.5 % Concent Red Cell Distribution Width 15.1 % Platelet Count 215 TH/MM3 Mean Platelet Volume 8.4 FL Neutrophils (%) (Auto) 38.3 % Lymphocytes (%) (Auto) 48.5 % Monocytes (%) (Auto) 8.1 % Eosinophils (%) (Auto) 4.6 % Basophils (%) (Auto) 0.5 % Neutrophils # (Auto) 2.2 TH/MM3 Lymphocytes # (Auto) 2.8 TH/MM3 Monocytes # (Auto) 0.5 TH/MM3 Eosinophils # (Auto) 0.3 TH/MM3 Basophils # (Auto) 0.0 TH/MM3 CBC Comment DIFF FINAL Differential Comment Physical Exam General General Appearance: Well Developed, Well Nourished, No Acute Distress, Comfortable Eyes Eye Exam: Pupils Equal, Pupils Reactive Ears & Nose Ears & Nose Exam: Nasal Mucosa Kershaw Throat Throat Exam: Oral Mucosa Kershaw & Moist Neck Neck Exam: Neck Supple, Trachea Midline Pulmonary Resp Exam: Clear Bilaterally, Breath Sounds Equal Cardiology CV Exam: Regular, Good Perfusion Gastrointestinal/Abdomen GI Exam: Soft, Non-Tender, Bowel Sounds Present, Non-Distended Musculoskeletal MS Exam: Joints Intact Integumentary Skin Exam: Warm, Dry Extremeties Extremities Exam: No Edema, Pedal Pulses Palpable Neurologic Neuro Exam: Alert, Awake, Oriented, Speech Clear, No Focal Deficits Psychiatric Psych Exam: Appropriate Responses VTE Prophylaxis VTE Prophylaxis Device: SCDs Assessment/Plan Assessment/Plan Recurrent seizures, this is her second episode Hypoglycemia Mild anemia Renal dysfunction, this appears to be new compared with her prior renal indices in 2015 Overweight Hypertriglyceridemia B 12 deficiency Management seizure precautions Neuro checks Appreciate neuro input, seizure meds recommended, she decline recommend no driving/climbing heights/operating dangerous machinery EEG pending no acute findings in imaging studies CUS no stenosis Echo pending low blood glucose may not be a factor in seizures, had hypoglycemia overnight, no seizure activity noted Blood glucose labile, dropped to 45 now 200 continue D 5 1/2 f/u Dr. Denney as OP Low B12, replace IM Renal function stable continue hydratin Needs to lose weight Continue home meds SCDs for DVT prophylaxis Poss dc today after work up done F/U Noe Pillai Diet-heart healthy, diabetes Activity-no driving, no climbing D/W RN D/W Dr. Grigsby D/W pt This pt was seen by myself and Dr. Grigsby, this note is written on his behalf. Kyung Castellanos Feb 01, 2017 08:19
--- NOTE | 2017-02-01 08:22 | HHI.DCPOC ---
Discharge Care Plan Diagnosis: (1) Seizure Your Health Problems Are: Difficulty with ADL Goals to Promote Your Health * To prevent worsening of your condition and complications * To maintain your health at the optimal level Directions to Meet Your Goals Take your medications as prescribed Follow your dietary instruction Follow activity as directed Keep your appointments as scheduled Take your immunizations and boosters as scheduled If your symptoms worsen call your PCP, if no PCP go to Urgent Care Center or Emergency Room Smoking is Dangerous to Your Health. Avoid second hand smoke Call the 24-hour hour crisis hotline for domestic abuse at Kyung Castellanos. [facility] Feb 01, 2017 08:22
[2017-02-01] MEDS: SODIUM CHLORIDE 0.9% FLUSH 10 ML FLUSH IV FLUSH SCH (09:00)
[2017-02-01] MEDS ORDERED: CYANOCOBALAMIN 1000 MCG/ML VIAL IM SCH (09:00)
[2017-02-01] MEDS: CHOLECALCIFEROL (VIT D3) 1000 UNIT TAB PO SCH (09:27)
[2017-02-01] MEDS: ASPIRIN EC 81 MG TABEC PO SCH (09:27)
[2017-02-01] MEDS: ATORVASTATIN 10 MG TAB PO SCH (09:27)
[2017-02-01] MEDS: ATENOLOL 25 MG TAB PO SCH (09:27)
[2017-02-01] MEDS: LISINOPRIL 10 MG TAB PO SCH (09:27)
[2017-02-01 11:04] VITALS: BP 134/65; PULSE 57; RESP 20; TEMP 98.1; O2SAT 97
[2017-02-01] MEDS ORDERED: CYAN1000P IM (11:34)
[2017-02-01 15:11] VITALS: BP 134/74; PULSE 58; RESP 20; TEMP 98.2; O2SAT 97
[2017-02-01 18:38] LABS: HEMOGLOBIN A1b 2.9 %; HEMOGLOBIN Ao 78.1 %; HEMOGLOBIN LA1C 2.4 %; HEMOGLOBIN P3 4.5 %
--- NOTE | 2017-02-01 19:01 | EC ---
Study Study Date:02/01/2017 STUDY CONCLUSIONS SUMMARY - Procedure narrative: Image quality was poor. The study was technically limited due to poor acoustic window availability. - Left ventricle: The cavity size was normal. Systolic function was probably normal. In limited views, the estimated ejection fraction was in the range of 50% to 55%, although difficult to determine from the study. - Pulmonary arteries: PA peak pressure: 32mm Hg (S). If LV function is below 40, please consider prescribing an ACEI or ARB or document rationale for non-use. PROCEDURE DATA STUDY STATUS: Elective. Procedure: Transthoracic echocardiography. Image quality was poor. The study was technically limited due to poor acoustic window availability. Scanning was performed from the parasternal, apical, and subcostal acoustic windows. Study completion: The patient tolerated the procedure well. Transthoracic echocardiography. M-mode, complete 2D, complete spectral Doppler, and color Doppler. Height: Height: 62in. Weight: Weight: 193.6lb. Body mass index: BMI: 35.5kg/m^2. Body surface area: BSA: 1.89m^2. Patient status: Inpatient. CARDIAC ANATOMY LEFT VENTRICLE: The cavity size was normal. Systolic function was probably normal. In limited views, the estimated ejection fraction was in the range of 50% to 55%, although difficult to determine from the study. Images were inadequate for LV wall motion assessment. AORTIC VALVE: Not well visualized. Doppler: There was no stenosis. No significant regurgitation. Valve area: 2.45cm^2 (Vmax). Indexed valve area: 1.3cm^2/m^2 (Vmax). MITRAL VALVE: Not well visualized. Doppler: There was no evidence for stenosis. No significant regurgitation. TRICUSPID VALVE: Not well visualized. Doppler: There was no evidence for stenosis. Trace to mild regurgitation. Patient weight: 193.6lb _Ejection fraction:_ 65-75% _Fractional shortening:_ 32% up to 5Kg 5-11.5Kg 11.6-22.9Kg 23-45Kg 45-57Kg Aortic Root 7-13 <17 13-22 17-27 17-27 LA diam 6-13 <23 24-38 33-47 37-40 RVID 10-17 7-15 7-15 7-18 8-17 LVIDd 12-22 <32 24-38 33-47 37-40 LVPW 2-4 3-6 5-7 6-8 7-8 IVS 2-4 3-6 5-7 6-8 7-8 BASIC MEASUREMENTS ADULT NORMAL Left ventricle LV internal dimension, ED, chordal *41.4 mm 43-52 level, PLAX LV internal dimension, ES, chordal 33.9 mm 23-38 level, PLAX Fractional shortening, chordal level, *18 % >29 PLAX LV posterior wall thickness, ED 8.76 mm IVS/LVPW ratio, ED 1.04 <1.3 Ventricular septum Septal thickness, ED 9.09 mm Aortic valve Leaflet separation 20 mm 15-26 BASIC MEASUREMENTS ADULT NORMAL Aortic valve Leaflet separation 20 mm 15-26 Aorta Root diameter, ED 35 mm 20-37 Left atrium Anterior-posterior dimension, ES 25 mm 19-40 Anterior-posterior dimension index, ES 1.32 cm/m^2 <2.2 LA/aortic root ratio 0.71 DOPPLER MEASUREMENTS ADULT NORMAL Main pulmonary artery Pressure, S *32 mm Hg =30 Aortic valve Peak velocity, S 88.2 cm/s Valve area, Vmax 2.45 cm^2 Valve area index, Vmax 1.3 cm^2/m^2 Mitral valve Peak E-wave velocity 65.6 cm/s Peak A-wave velocity 71.1 cm/s Deceleration time 225 ms 150-230 Peak E/A ratio 0.9 Tricuspid valve Regurgitant peak velocity 252 cm/s Peak RV-RA gradient, S 25 mm Hg Maximal regurgitant velocity 252 cm/s Systemic veins Estimated CVP 10 mm Hg Right ventricle RV pressure, S *35 mm Hg <30 Pulmonic valve Peak velocity, S 88.2 cm/s LEGEND: Mean values are shown as u=mean value. Asterisk (*) medrano values outside specified normal range. Prepared and signed by Ramon Rubio [id number]
--- NOTE | 2017-02-01 19:51 | MG ---
cc: JOJO JEAN-BAPTISTE M.D. Lab No: Date: 02/01/2017 Age: Sex: F Race: REQUESTING PHYSICIAN JOON Castellanos INTRODUCTION An EEG was obtained on this 76-year-old patient being evaluated for incontinence, unresponsiveness and possible seizures. DESCRIPTION The patient is awake and asleep during the study. The EEG shows low amplitude beta rhythms diffusely. There are some intermixed theta and alpha rhythms in the central and posterior head regions. There is some delta activity and this is probably related to sleep. There are sleepy spindles as well. Clearly the patient is asleep later on and there are no paroxysmal discharges. Photic stimulation showed some bilateral driving response. INTERPRETATION Normal awake and asleep EEG. Jojo Jean-Baptiste MD [facility]/KK /6:13 PM /7:47 PM
--- NOTE | 2017-02-06 16:38 | HHI.DS ---
Discharge Summary Admission Date Jan 31, 2017 at 01:28 Discharge Date: Feb 01, 2017 Admitting Diagnosis hypoglycemia, syncope versus seizure Procedures EEG Brief History This was a 76-year-old female with a history of diabetes. Patient had an episode of becoming rigid, shaking all over and groaning. This was witnessed by her son who was at her bedside while examined earlier today by the undersigned in room F 62 at the emergency department. She had urinary incontinence. She did not bite her tongue. 911 were called. Her fingerstick sugar was 120 according to EMS. She was alert and verbal and oriented on arrival to the emergency department however her blood glucose was 42 and her serum glucose was 48. On further questioning the patient she did not think that the low sugar was the reason for her apparent seizure. She had a similar seizure episode 2 years ago that was apparently associated with some urinary infection but no problem with her blood sugar. The patient was seen in conjunction with neurologist Dr. Liu . Based on the above fact that the patient had what appears to be 2 episodes of seizure , therefore the patient was offered to be started on Keppra which she declined. She drove to work and she was informed that she should not be driving for the next 6 months. The patient gave herself NovoLog insulin based on a sliding scale 3 times a day before meals. She said that her blood sugar was actually elevated yesterday. She recently was started on weekly injections for her diabetes however she did not know the name of those injections. She also had been not taking her B-12 injections recently. She denied complaints otherwise. Imaging Last Impressions Head Magnetic Resonance Angiography 01/31/17 0000 Signed Impressions: Service Date/Time: Tuesday, January 31, 2017 14:42 - CONCLUSION: Normal examination for a patient of this age. Randolph Lynn MD Carotid Artery Ultrasound 01/31/17 0000 Signed Impressions: Service Date/Time: Tuesday, January 31, 2017 18:50 - CONCLUSION: Normal examination for a patient of this age. Randolph Lynn MD Brain MRI 01/31/17 0000 Signed Impressions: Service Date/Time: Tuesday, January 31, 2017 14:42 - CONCLUSION: 1. No acute findings. Mild chronic white matter ischemic changes. No recent infarct. Retention cyst right maxillary sinus. Randolph Lynn MD Head CT 01/30/17 0687 Signed Impressions: Service Date/Time: Monday, January 30, 2017 23:23 - CONCLUSION: 1. No evidence of acute intracranial pathology. No masses are identified. Kirt Ayala MD Chest X-Ray 01/30/17 2238 Signed Impressions: Service Date/Time: Monday, January 30, 2017 22:38 - CONCLUSION: 1. No acute cardiopulmonary disease. Kirt Ayala MD PE at Discharge General Appearance: Well Developed, Well Nourished, No Acute Distress, Comfortable Eyes Eye Exam: Pupils Equal, Pupils Reactive Ears & Nose Ears & Nose Exam: Nasal Mucosa Jaars Throat Throat Exam: Oral Mucosa Jaars & Moist Neck Neck Exam: Neck Supple, Trachea Midline Pulmonary Resp Exam: Clear Bilaterally, Breath Sounds Equal Cardiology CV Exam: Regular, Good Perfusion Gastrointestinal/Abdomen GI Exam: Soft, Non-Tender, Bowel Sounds Present, Non-Distended Musculoskeletal MS Exam: Joints Intact Integumentary Skin Exam: Warm, Dry Extremeties Extremities Exam: No Edema, Pedal Pulses Palpable Neurologic Neuro Exam: Alert, Awake, Oriented, Speech Clear, No Focal Deficits Psychiatric Psych Exam: Appropriate Responses VTE Prophylaxis VTE Prophylaxis Device: SCDs Hospital Course These are the diagnoses that were used to treat this patient during this brief hospital stay. Recurrent seizures, this is her second episode Hypoglycemia Mild anemia Renal dysfunction, this appears to be new compared with her prior renal indices in 2015 Overweight Hypertriglyceridemia B 12 deficiency Management seizure precautions, this was her second episode Neuro checks throughout hospital stay, essentially negative findings Appreciate neuro consult and input, seizure meds recommended, she decline recommend no driving/climbing heights/operating dangerous machinery EEG pending no acute findings in imaging studies that were done during this hospital course CUS no stenosis Echo done, no acute findings low blood glucose may not be a factor in seizures, had hypoglycemia overnight, no seizure activity noted Blood glucose labile, dropped to 45 now 200 continue D 5 1/2, IV fluids for gentle hydration f/u Dr. Denney as OP Low B12, replaced IM medication. Will need to be followed on an outpatient basis Renal function stable continue hydratin Needs to lose weight Continue home meds SCDs for DVT prophylaxis Poss dc today after work up done F/U Dr. 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 Follow-up can be done on outpatient basis. Pt Condition on Discharge: Fair Discharge Disposition: Discharge Home Discharge Instructions DIET: Follow Instructions for: Diabetic Diet Additional Diet Instructions: MUST SNACK QHS Activities you can perform: Weight Bearing as Krystina, See Additionl Instruction Other Activity Instructions: NO DRIVING Follow up Referrals: Endocrinology with Dr. Denney SUGAR 45 REPEATEDLY AROUND 3 AM Neurology with Azar Liu MD PCP Follow-up MONTHLY B12 INJECTIONS New Medications: Cyanocobalamin Inj (Cyanocobalamin Inj) 1,000 Mcg/Ml Inj 1000 MCG IM MONTHLY b12 deficiency #12 INJECTION Continued Medications: Aspirin DR (Aspirin 81) 81 Mg Tabdr 81 MG PO DAILY Ref 0 TAB Atenolol (Atenolol) 25 Mg Tab 25 MG PO DAILY Blood Pressure Management #30 TAB Cholecalciferol (D3 Super Strength) 2,000 Unit Cap 2000 UNITS PO DAILY Nutritional Supplement #30 Ref 0 CAP Exenatide Pen Inj (Bydureon Pen Inj) 2 Mg Pfpen 2 MG SQ Q7D Blood Sugar Management #4 Ref 0 INJECTION Insulin Aspart Inj (Novolog Inj) 1,000 Unit/10 Ml Vial 0 SQ DIRECTED Sliding Scale as directed. Blood Sugar Management #10 Ref 0 ML Levothyroxine (Synthroid) 88 Mcg Tab 88 MCG PO DAILY Thyroid #30 Ref 0 TAB Lisinopril (Lisinopril) 10 Mg Tab 10 MG PO DAILY #30 Ref 0 TAB Metformin ER (Metformin ER) 1,000 Mg Momo 1000 MG PO BID With evening meal Blood Sugar Management #30 Ref 0 TAB Rosuvastatin (Crestor) 5 Mg Tab 5 MG PO DAILY Cholesterol Management #30 Ref 0 TAB ([trejenta]) Moon Oconnor Feb 06, 2017 16:38
== END 2017-02-01 16:50 | disposition home or self-care (01) ==
LOC: NEPE 22:22 → NEDA 01-31 01:28 → NEPFCDU 01-31 04:53
PROVIDERS: ADMIT Specialist; ATTEND Specialist
DX: R56.9 Unspecified convulsions (principal); E11.649 Type 2 diabetes mellitus with hypoglycemia without coma; R55 Syncope and collapse; D64.9 Anemia, unspecified; N28.9 Disorder of kidney and ureter, unspecified; E66.3 Overweight; E78.1 Pure hyperglyceridemia; E53.8 Deficiency of other specified B group vitamins; E03.9 Hypothyroidism, unspecified; E78.5 Hyperlipidemia, unspecified; I10 Essential (primary) hypertension; M19.90 Unspecified osteoarthritis, unspecified site; Z87.891 Personal history of nicotine dependence; E78.00 Pure hypercholesterolemia, unspecified; Z88.2 Allergy status to sulfonamides; Z79.4 Long term (current) use of insulin; Z79.82 Long term (current) use of aspirin; Z68.35 Body mass index [BMI] 35.0-35.9, adult
CPT/HCPCS: 70450; 70544; 70551; 71010; 80048; 80053; 80061; 81001; 82550; 82552; 82607; 82948; 83036; 83735; 84443; 84484; 85025; 85610; 85652; 85730; 93005; 93306; 93880; 95819; 96361; 96374; 97161; 99285; G0378; G8987; G8988; J1815; J3420; J7030; J7042